=== PATIENT | male | born 1965 | race Two or more races ===

== ENCOUNTER 2017-07-25 09:53 | Outpatient (CLI) | payer OTHER | END 2017-07-25 10:04 | disposition home or self-care (01) | LOC: SONOGRAMA 09:53 | DX: R07.89 Other chest pain (principal); R73.01 Impaired fasting glucose; R00.2 Palpitations; E78.00 Pure hypercholesterolemia, unspecified; R10.11 Right upper quadrant pain; Z12.5 Encounter for screening for malignant neoplasm of prostate; Z12.11 Encounter for screening for malignant neoplasm of colon ==